=== PATIENT | female | born 2000 | race Caucasian/White ===

== ENCOUNTER 2021-10-13 22:14 | Observation (INO) | payer MEDICAID, OTHER ==
[2021-10-13] MEDS ORDERED: hydrALAZINE 20 MG/ML VIAL SLOW IVP PRN (23:02)
[2021-10-13 23:09] VITALS: BMI 29.0
[2021-10-13 23:16] LABS: Fetal Membranes Rupture No Membranes Rupture (No Rupture)
[2021-10-13] MEDS ORDERED: Lactated Ringer's 1,000 ML IV SCH (23:45)
[2021-10-14] MEDS ORDERED: Lactated Ringer's 1,000 ML IV SCH ×2 (01:00→02:00)
[2021-10-14 01:15] LABS: FFN Internal QC Analyzer PASS (PASS); FFN Internal QC Cassette PASS (PASS); Fetal Fibronectin Negative (Negative)
[2021-10-14] MEDS ORDERED: Promethazine HCl 25 MG/ML VIAL IM PRN (01:49)
[2021-10-14] MEDS ORDERED: hydrALAZINE 20 MG/ML VIAL SLOW IVP PRN (01:49)
[2021-10-14] MEDS ORDERED: Docusate 100 MG CAP PO PRN (01:49)
[2021-10-14] MEDS ORDERED: Ondansetron PF 4 MG/2 ML Vial IVP PRN (01:49)
[2021-10-14] MEDS ORDERED: Acetaminophen 500 MG TAB PO PRN (01:49)
[2021-10-14] MEDS ORDERED: Simethicone Chewable 80 MG TAB PO PRN (01:50)
[2021-10-14] MEDS ORDERED: NIFEdipine 10 MG CAP PO SCH (02:15)
[2021-10-14] MEDS ORDERED: NIFEdipine 10 MG CAP PO PRN (02:15)
[2021-10-14] MEDS: NIFEdipine 10 MG CAP PO SCH ×2 (03:25→03:53)
[2021-10-14 03:30] LABS: SARS-CoV-2 NAA Rapid Test Not Detected (NotDetected)
== END 2021-10-14 09:00 | disposition home health service (06) ==
LOC: CSHLD/OP 22:14 → CSHLD 10-14 05:20
PROVIDERS: ADMIT Student in an Organized Health Care Education/Training Program; ATTEND Student in an Organized Health Care Education/Training Program
DX: O99.891 Other specified diseases and conditions complicating pregnancy (principal); N89.8 Other specified noninflammatory disorders of vagina; O47.03 False labor before 37 completed weeks of gestation, third trimester; O99.513 Diseases of the respiratory system complicating pregnancy, third trimester; J45.909 Unspecified asthma, uncomplicated; O99.413 Diseases of the circulatory system complicating pregnancy, third trimester; I73.00 Raynaud's syndrome without gangrene; O99.283 Endocrine, nutritional and metabolic diseases complicating pregnancy, third trimester; E78.5 Hyperlipidemia, unspecified; Z3A.30 30 weeks gestation of pregnancy; Z88.0 Allergy status to penicillin; Z88.1 Allergy status to other antibiotic agents; Z20.822 Contact with and (suspected) exposure to COVID-19
CPT/HCPCS: 82731; 84112; 87480; 87510; 87660; 96374; 99285; G0378; J2405; U0002

== ENCOUNTER 2021-11-07 10:56 | Day surgery (SDC) | payer OTHER ==
[2021-11-07] MEDS ORDERED: hydrALAZINE 20 MG/ML VIAL SLOW IVP PRN ×2 (12:13→14:25)
[2021-11-07 12:47] LABS: Fetal Membranes Rupture No Membranes Rupture (No Rupture)
[2021-11-07 12:49] LABS: Bilirubin Neg (Negative); Blood, Urine Negative (Negative); Clarity Clear (Clear); Glucose, Urine (Dipstick) Normal (Negative); Ketone, Urine Negative (Negative); Leukocyte 25 (Negative); Nitrite Negative (Negative); Protein, Urine (Dipstick) Negative (Neg-Trace); Urobilinogen Normal mg/dL (Less than 2)
[2021-11-07 13:00] LABS: Bacteria/HPF 2+ HPF (None Seen); RBC/HPF 0-3 HPF (0-3); Squamous Epithelial 0-3 HPF (0-3); WBC/HPF 0-3 HPF (0-3)
[2021-11-07 13:01] LABS: Mucous/LPF Rare LPF (<2+)
[2021-11-07] MEDS ORDERED: Ondansetron PF 4 MG/2 ML Vial IVP PRN (14:25)
[2021-11-07] MEDS ORDERED: Lactated Ringer's 1,000 ML IV SCH (14:30)
[2021-11-07] MEDS ORDERED: Nitrofurantoin Monohyd/M-Cryst 100 MG CAP PO SCH ×2 (15:00→21:00)
[2021-11-07 19:00] VITALS: BMI 29.6
[2021-11-07 21:07] LABS: Fetal Membranes Rupture No Membranes Rupture (No Rupture)
== END 2021-11-07 22:29 | disposition home or self-care (01) ==
LOC: CSHLD/OP 10:56
PROVIDERS: ATTEND Obstetrics & Gynecology
DX: O99.891 Other specified diseases and conditions complicating pregnancy (principal); N89.8 Other specified noninflammatory disorders of vagina; O36.8130 Decreased fetal movements, third trimester, not applicable or unspecified; O23.43 Unspecified infection of urinary tract in pregnancy, third trimester; N39.0 Urinary tract infection, site not specified; Z3A.34 34 weeks gestation of pregnancy; Z88.0 Allergy status to penicillin; Z88.1 Allergy status to other antibiotic agents
CPT/HCPCS: 76815; 81001; 84112; 87086; 87480; 87510; 87660